=== PATIENT | male | born 1980 | race Caucasian/White ===

== ENCOUNTER 2017-02-21 00:03 | Emergency (ER) | payer OTHER ==
[~2017-02-21] VITALS: Ht 177.8 cm; Wt 99.8 kg
[~2017-02-21 00:03] MED LIST: ALBUTEROL0.09 MG/A1 INH; ALPRAZOLAM1 MG PO; CARVEDILOL12.5 MG PO; ESCITALOPRAM10 MG PO; LISINOPRIL20 MG PO; MEDROL DOSEPAK1 PAC PO; TESSALON PERLE100 MG PO; ZITHROMAX Z-PA250 M1 PO
--- NOTE | 2017-02-21 00:19 | ED AMS/SEIZURE/WEAK/DIZZY ---
History of Present Illness General Chief Complaint: General Adult Stated Complaint: ANXIETY NAUSEA DIARRHEA Source: patient Exam Limitations: no limitations Vital Signs & Intake/Output Vital Signs & Intake/Output Vital Signs Date Time Temp Pulse Resp B/P B/P Pulse O2 O2 Flow FiO2 Mean Ox Delivery Rate 02/21 0244 97.8 71 18 128/74 97 Room Air 02/21 0104 97.8 70 18 133/87 100 Room Air Allergies Coded Allergies: bee venom protein (honey bee) (UNKNOWN 02/21/17) Reconcile Medications Albuterol Sulfate (Albuterol Sulfate Hfa) 0.09 MG/Actuation ROSSANA 2 PUFF INH Q4- 6 PRN PRN SHORTNESS OF BREATH 90 MCG PER PUFF Alprazolam 1 MG TAB 1 TAB PO AT BEDTIME SLEEP (Reported) Azithromycin (Zithromax Z-Donnell) 250 MG CAP 1 DP PO AD bronchitis 2 the first day followed by 1 for days 2-5 Benzonatate (Tessalon Perle) 100 MG SGL 1 TAB PO TID PRN COUGH Carvedilol 12.5 MG TAB 1 TAB PO BID HEART (Reported) Escitalopram Oxalate 10 MG TAB 1 TAB PO DAILY MENTAL HEALTH (Reported) Lisinopril 20 MG TAB 1 TAB PO DAILY HEART (Reported) Methylprednisolone. (Medrol) 1 PAC PAC 1 PAC PO DAILY BRONCHITIS TAKE PRESCRIBED Triage Note: TRIAGE: BIBA REPORTING SUDDEN ONSET ABD PAIN, NAUSEA AND DIARRHEA, "BECAME NERVOUS AND HAD R/L ARM TINGLING AND NUMBNESS." PER EMS, ON ARRIVAL PATINT WAS VERY PALE AND DIAPHORETIC, FINGERSTICK 89. PREHOSP 12 LEAD UNREMARKABLE. PREHOSP IV EST #18 RIGHT HAND, 500ML NS BOLUS COMPLETED IN ROUTE. ARRIVES TO ER DENYING ANY COMPLAINTS. PATIENT TALKING ON CELL PHONE ON ARRIVAL. HX WEAK L VENTRICLE, "MULTIPLE PEOPLE IN FAMILY FROM CARDIAC PROBLEMS." Triage Nurses Notes Reviewed? yes Onset: Abrupt Duration: minute(s): Timing: single episode today Injury Environment: work Severity: moderate Modifying Factors: Improves With: rest. Associated Symptoms: DIZZINESS, DIARRHEA HPI: 36 yo gentleman h/o "weak left ventricle" had an episode, "that felt like I was going anaphylactic." He reports that he was at work. "I suddenly felt both my arms tingle. I felt dizzy and nauseous. I then had the urge to have a bowel movement. I had a large bowel movement and then started to feel better. He notes no chest pain, syncopal symptoms, rash, shortness of breath, wheezing. Past History Travel History Traveled to [place] past 21 day No Medical History Any Pertinent Medical History? 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 No Review of Systems Review of Systems Constitutional: Reports: no symptoms. EENTM: Reports: no symptoms. Respiratory: Reports: no symptoms. Cardiovascular: Reports: no symptoms. GI: Reports: no symptoms. Genitourinary: Reports: no symptoms. Musculoskeletal: Reports: no symptoms. Skin: Reports: no symptoms. Neurological/Psychological: Reports: no symptoms. Hematologic/Endocrine: Reports: no symptoms. Immunologic/Allergic: Reports: no symptoms. All Other Systems: Reviewed and Negative Physical Exam Physical Exam General Appearance: well developed/nourished, no apparent distress Head: atraumatic, normal appearance Eyes: Bilateral: normal appearance. Ears, Nose, Throat: normal pharynx, normal ENT inspection Neck: normal inspection, supple, full range of motion Respiratory: normal breath sounds, chest non-tender, no respiratory distress, quiet respiration, lungs clear Cardiovascular: regular rate/rhythm Gastrointestinal: normal bowel sounds, soft, non-tender, no organomegaly Back: normal inspection Extremities: normal range of motion, pelvis stable Neurologic/Psych: no motor/sensory deficits, awake, alert, oriented x 3 Skin: intact, normal color, warm/dry Core Measures ACS in differential dx? No CVA/TIA Diagnosis No Sepsis Present: No Sepsis Focused Exam Completed? No Progress Differential Diagnosis: viral syndrome vs other.... perc score negative Plan of Care: Orders Procedure Date/time Status TROPONIN LEVEL 02/21 18 Complete LIPASE 02/21 18 Complete HEPATIC FUNCTION PANEL 02/21 18 Complete CBC WITHOUT DIFFERENTIAL 02/21 18 Complete BASIC METABOLIC PANEL 02/21 18 Complete AMYLASE 02/21 18 Complete EKG 02/21 14 Active Laboratory Tests 02/21/17 0046: Anion Gap 13, Estimated GFR > 60, BUN/Creatinine Ratio 26.3 H, Glucose 76, Calcium 9.6, Total Bilirubin 0.5, Direct Bilirubin 0.4, AST 26, ALT 40, Alkaline Phosphatase 74, Troponin I 0.01, Total Protein 7.4, Albumin 4.6, Amylase 42, Lipase 34, CBC w Diff NO MAN DIFF REQ, RBC 4.89, MCV 90.5, MCH 31.1 H, RDW 13.2 , MPV 8.7, Gran % 79.9 H, Lymphocytes % 13.4 L, Monocytes % 5.2, Eosinophils % 1.4, Basophils % 0.1, Absolute Granulocytes 11.5 H, Absolute Lymphocytes 1.9, Absolute Monocytes 0.8 H, Absolute Eosinophils 0.2, Absolute Basophils 0, PUBS MCHC 34.4 Initial ED EKG: normal axis, normal intervals, normal p-waves, normal QRS complex, normal sinus rhythm Departure Departure Disposition: HOME OR SELF CARE Condition: Stable Clinical Impression Primary Impression: Dizziness Secondary Impressions: Diarrhea Referrals: Jenae Guevara MD (PCP/Family) Departure Forms: Customer Survey General Discharge Information Comments 02/22/16, 2:27am... pt feeling better after iv fluids. labs/ekg benign. Pt likely with viral syndrome/gastroenteritis. I doubt cardiac issues. Pt safe for discharge.
[2017-02-21 01:17] LABS: ABSOLUTE BASOPHIL COUNT 0 /CUMM (0.0-0.2); ABSOLUTE EOSINOPHIL COUNT 0.2 /CUMM (0.0-0.7); ABSOLUTE GRANULOCYTE CT 11.5 /CUMM (1.4-6.5); ABSOLUTE LYMPH COUNT 1.9 /CUMM (1.2-3.4); ABSOLUTE MONOCYTE COUNT 0.8 /CUMM (0.10-0.60); BASOPHIL % 0.1 % (0.0-2.0); EOSINOPHIL % 1.4 % (0-5); GRANULOCYTE % 79.9 % (42.2-75.2); HEMATOCRIT 44.2 % (42-52); MEAN CORPUSCULAR HGB 31.1 PG (27.0-31.0); MEAN CORPUSCULAR HGB CONC 34.4 G/DL (33.0-37.0); MEAN CORPUSCULAR VOLUME 90.5 FL (80.0-94.0); MEAN PLATELET VOLUME 8.7 FL (7.4-10.4); PLATELET COUNT 169 /CUMM (130-400); RBC DISTRIBUTION WIDTH 13.2 % (11.5-14.5); RED BLOOD CELL CT 4.89 /CUMM (4.70-6.10); WHITE BLOOD CELL COUNT 14.4 /CUMM (4.8-10.8)
[2017-02-21 02:44] VITALS: BP 128/74
== END 2017-02-21 02:49 ==
LOC: ERH 00:03 → GFPP MAPLE 00:22 → ERH 00:22
PROVIDERS: Pediatrics
DX: R42 Dizziness and giddiness (principal); R19.7 Diarrhea, unspecified
CPT/HCPCS: 93005; 93010; 96360